=== PATIENT | male | born 1985 | race Caucasian/White ===

== ENCOUNTER 2019-06-02 16:18 | Emergency (ER) | payer OTHER, SELFPAY ==
[~2019-06-02] VITALS: Ht 180.3 cm; Wt 140.9 kg
[2019-06-02] MEDS ORDERED: FLUO40CA PO (16:24)
[2019-06-02] MEDS ORDERED: MONT10TA2 PO (16:24)
[2019-06-02] MEDS ORDERED: OMEP40CA2 PO (16:24)
[2019-06-02] MEDS ORDERED: BUSP30TA PO (16:24)
[2019-06-02] MEDS ORDERED: ADV250INH INH (16:24)
[2019-06-02] MEDS ORDERED: PROAAER10 INH (16:24)
[2019-06-02 17:10] LABS: HEMATOCRIT 43.1 % (42.0-52.0); HEMOGLOBIN 14.8 g/dl (13.5-17.5); MEAN CORPUSCULAR HEMOGLOBIN 28.9 pg (27.0-33.0); MEAN CORPUSCULAR HGB CONC 34.3 g/dl (32.0-36.5); MEAN CORPUSCULAR VOLUME 84.2 fl (80.0-96.0); PLATELET COUNT, AUTOMATED 354 10^3/uL (150-450); RED BLOOD COUNT 5.12 10^6/uL (4.30-6.10); WHITE BLOOD COUNT 9.7 10^3/uL (4.0-10.0)
[2019-06-02 17:50] LABS: ALBUMIN 3.6 GM/DL (3.2-5.2); ALT/SGPT 23 U/L (12-78); BILIRUBIN,DIRECT 0.1 MG/DL (0.0-0.2); BILIRUBIN,TOTAL 0.4 MG/DL (0.2-1.0); BLOOD UREA NITROGEN 7 MG/DL (7-18); CALCIUM LEVEL 8.7 MG/DL (8.5-10.1); CARBON DIOXIDE LEVEL 25 MEQ/L (21-32); CHLORIDE LEVEL 109 MEQ/L (98-107); CREATININE FOR GFR 0.97 MG/DL (0.70-1.30); GLOMERULAR FILTRATION RATE > 60.0 (>60); GLUCOSE, FASTING 107 MG/DL (70-100); POTASSIUM SERUM 3.8 MEQ/L (3.5-5.1); SALICYLATE LEVEL < 1.7 MG/DL (5.0-30.0); SODIUM LEVEL 141 MEQ/L (136-145); THYROID STIMULATING HORMONE 0.708 uIU/ML (0.358-3.740); TOTAL PROTEIN 6.9 GM/DL (6.4-8.2)
[2019-06-02 17:51] LABS: ACETAMINOPHEN LEVEL < 2.0 UG/ML (10.0-30.0); ETHYL ALCOHOL (ETHANOL) < 0.003 % (0.000-0.010)
[2019-06-02 18:56] LABS: AMPHETAMINES LEVEL URINE NEGATIVE (NEGATIVE); BARBITURATES URINE NEGATIVE (NEGATIVE); BENZODIAZEPINES URINE NEGATIVE (NEGATIVE); CANNABINOIDS URINE NEGATIVE (NEGATIVE); COCAINE METABOLITE URINE NEGATIVE (NEGATIVE); METHADONE URINE NEGATIVE (NEGATIVE); OPIATES URINE NEGATIVE (NEGATIVE); PHENCYCLIDINE URINE NEGATIVE (NEGATIVE)
[2019-06-02] MEDS ORDERED: FLUoxetine 20 MG CAP PO ONE (22:15)
[2019-06-02] MEDS ORDERED: busPIRone 10 MG TAB PO ONE (22:15)
[2019-06-03] MEDS ORDERED: MONTELUKAST 10 MG TAB PO ONE (07:30)
[2019-06-03] MEDS ORDERED: OMEPRAZOLE 20 MG CAP PO ONE (07:30)
[2019-06-03] MEDS ORDERED: busPIRone 10 MG TAB PO ONE (07:30)
[2019-06-03] MEDS ORDERED: ADVAIR HFA 230/21MCG INHALER INH SCH (08:00)
[2019-06-03] MEDS: ADVAIR HFA 115/21MCG INHALER INH SCH ×2 (08:00→21:30)
[2019-06-03] MEDS ORDERED: FLUO20CA19 PO (11:47)
--- NOTE | 2019-06-03 17:00 | ECGEPIP ---
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
[2019-06-03 23:51] VITALS: BP 138/74
== END 2019-06-03 23:52 ==
LOC: M ED 16:18
DX: F32.9 Major depressive disorder, single episode, unspecified (principal); R45.851 Suicidal ideations; Z79.899 Other long term (current) drug therapy
CPT/HCPCS: 36415; 80048; 80076; 80307; 84443; 85027; 93005; 94640; 99284; G0480

== ENCOUNTER 2019-08-21 23:49 | Emergency (ER) | payer OTHER, SELFPAY ==
[~2019-08-21] VITALS: Ht 180.3 cm; Wt 145.4 kg
[~2019-08-21 23:49] MED LIST: ADV250INH INH; BUSP30TA PO; FLUO20CA19 PO; FLUO40CA PO; MONT10TA2 PO; OMEP40CA97 PO; PROAAER10 INH
[2019-08-22 00:36] LABS: HEMATOCRIT 47.4 % (42.0-52.0); HEMOGLOBIN 15.8 g/dl (13.5-17.5); MEAN CORPUSCULAR HEMOGLOBIN 29.1 pg (27.0-33.0); MEAN CORPUSCULAR HGB CONC 33.3 g/dl (32.0-36.5); MEAN CORPUSCULAR VOLUME 87.3 fl (80.0-96.0); PLATELET COUNT, AUTOMATED 329 10^3/uL (150-450); RED BLOOD COUNT 5.43 10^6/uL (4.30-6.10); WHITE BLOOD COUNT 9.9 10^3/uL (4.0-10.0)
[2019-08-22 01:03] LABS: AMPHETAMINES LEVEL URINE NEGATIVE (NEGATIVE); BARBITURATES URINE NEGATIVE (NEGATIVE); BENZODIAZEPINES URINE NEGATIVE (NEGATIVE); CANNABINOIDS URINE NEGATIVE (NEGATIVE); COCAINE METABOLITE URINE NEGATIVE (NEGATIVE); METHADONE URINE NEGATIVE (NEGATIVE); OPIATES URINE NEGATIVE (NEGATIVE); PHENCYCLIDINE URINE NEGATIVE (NEGATIVE)
[2019-08-22 01:10] VITALS: BP 139/86
[2019-08-22 01:10] LABS: ACETAMINOPHEN LEVEL < 2.0 UG/ML (10.0-30.0); ALBUMIN 3.9 GM/DL (3.2-5.2); ALT/SGPT 26 U/L (12-78); BILIRUBIN,DIRECT < 0.1 MG/DL (0.0-0.2); BILIRUBIN,TOTAL 0.2 MG/DL (0.2-1.0); BLOOD UREA NITROGEN 7 MG/DL (7-18); CALCIUM LEVEL 8.7 MG/DL (8.5-10.1); CARBON DIOXIDE LEVEL 23 MEQ/L (21-32); CHLORIDE LEVEL 109 MEQ/L (98-107); CREATININE FOR GFR 1.06 MG/DL (0.70-1.30); ETHYL ALCOHOL (ETHANOL) 0.185 % (0.000-0.010); GLOMERULAR FILTRATION RATE > 60.0 (>60); GLUCOSE, FASTING 89 MG/DL (70-100); POTASSIUM SERUM 3.7 MEQ/L (3.5-5.1); SALICYLATE LEVEL < 1.7 MG/DL (5.0-30.0); SODIUM LEVEL 142 MEQ/L (136-145); TOTAL PROTEIN 7.9 GM/DL (6.4-8.2)
== END 2019-08-22 01:11 | disposition home or self-care (01) ==
LOC: M ED 23:49
DX: F10.920 Alcohol use, unspecified with intoxication, uncomplicated (principal); Z60.9 Problem related to social environment, unspecified; Z15.09 Genetic susceptibility to other malignant neoplasm; Z79.51 Long term (current) use of inhaled steroids; Z79.83 Long term (current) use of bisphosphonates; Z79.899 Other long term (current) drug therapy
CPT/HCPCS: 36415; 80048; 80076; 80307; 84443; 85027; 99284; G0480

== ENCOUNTER → 2020-08-22 | Outpatient (CLI) | payer OTHER ==
[~2020-08-22] MED LIST changes: +DULO1CAP6 PO; +E-Z-PAQUE 96% w/w SUSP 176GM BTL As Ordered ONE; -FLUO20CA19 PO; +FLUO20CA22 PO; +FLUT1BLS2 IH; -MONT10TA2 PO; +MONT10TA4 PO; +SYMB80INH INH
--- NOTE | 2020-08-22 15:49 | REP ---
INDICATION: GENETIC SUSCEPTIBILITY TO OTHER MALIGNANT NEOPLASM. COMPARISON: None TECHNIQUE: This procedure was performed by Blanche Franks [facility], under the direct supervision of Dr. Freire. Images were reviewed with Dr. Freire prior to dictation. Liquid barium was administered and the barium column was followed through the small bowel to the level of the terminal ileum. 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 The intestinal gas pattern is unremarkable. Small bowel transit time is approximately 115 minutes. During fluoroscopy gentle palpation shows all loops are freely movable and pliable. There is no fixed angulated loops. The small bowel mucosal pattern is normal in course and caliber. There is no transition to suggest a partial small bowel obstruction. Spot filming of the terminal ileum shows it to be unremarkable. IMPRESSION: Unremarkable small bowel follow-through. 0.7 minutes of fluoroscopy time was utilized for this procedure. Some fluoroscopic images are performed with last image hold technology. These images require no additional radiation. <Electronically signed by Blanche Franks > 08/22/20 [id number] <Electronically signed by Juan Freire > 08/22/20 2091
== END ==
LOC: M RAD 08:30
PROVIDERS: ATTEND Physician Assistant Medical
DX: Z15.09 Genetic susceptibility to other malignant neoplasm (principal)

== ENCOUNTER → 2020-08-24 | Outpatient (CLI) | payer OTHER ==
[~2020-08-24] MED LIST changes: -E-Z-PAQUE 96% w/w SUSP 176GM BTL As Ordered ONE
== END ==
LOC: M LABSMTC 12:56
PROVIDERS: ATTEND Anesthesiology
DX: Z01.812 Encounter for preprocedural laboratory examination (principal); Z20.828 Contact with and (suspected) exposure to other viral communicable diseases

== ENCOUNTER 2020-08-29 13:54 | Day surgery (SDC) | payer OTHER ==
[~2020-08-29] VITALS: Ht 180.3 cm; Wt 139.3 kg
[~2020-08-29 13:54] MED LIST changes: -MONT10TA4 PO; +MONT5TAB2 PO; +NS 1,000 ML IV ONE
[2020-08-29] MEDS ORDERED: propofoL 200 MG/20 ML VIAL As Ordered ONE ×2 (14:53→16:11)
[2020-08-29] MEDS ORDERED: fentaNYL 100 MCG/2 ML INJECTION (J3010) As Ordered ONE (14:54)
--- NOTE | 2020-08-29 16:05 | ROOR ---
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 Procedure: Pre-Anesthesia Assessment: - The heart rate, respiratory rate, oxygen saturations, blood pressure, adequacy of pulmonary ventilation, and response to care were monitored throughout the procedure. The Endoscope was introduced through the mouth, and advanced to the second part of duodenum. The upper GI endoscopy was accomplished without difficulty. The patient tolerated the procedure well. Findings: The Z-line was variable and was found 38 cm from the incisors. This was biopsied with a cold forceps for histology. Small Hiatal Hernia. Two diminutive sessile polyps were found on the greater curvature of the gastric body. The polyp was removed with a cold biopsy forceps. Resection and retrieval were complete. The exam was otherwise without abnormality. Impression: - Z-line variable, 38 cm from the incisors. Biopsied. - Small Hiatal Hernia. - Two gastric polyps. Resected and retrieved. - The examination was otherwise normal. Recommendation: - Telephone endoscopist for pathology results in 2 weeks. - Repeat upper endoscopy for surveillance based on pathology results. - (typically every 1-2 years---await pathology) Procedure Code(s): --- Professional --- 01636, Esophagogastroduodenoscopy, flexible, transoral; with biopsy, single or multiple Diagnosis Code(s): --- Professional --- Z15.09, Genetic susceptibility to other malignant neoplasm K31.7, Polyp of stomach and duodenum K22.8, Other specified diseases of esophagus CPT copyright 2019 [employer]. All rights reserved. The codes documented in this report are preliminary and upon song lyricist review may be revised to meet current compliance requirements. Sammy Ballard MD Sammy BALLARD MD 08/29/2020 4:05:37 PM Electronically signed by Sammy BALLARD MD Number of Addenda: 0 Note Initiated On: 08/29/2020 3:46 PM Estimated Blood Loss: Estimated blood loss: none.
[2020-08-29] MEDS ORDERED: LIDOCAINE 2% 100MG/5ML SDV (FOR ANES.) As Ordered ONE (16:14)
--- NOTE | 2020-08-29 16:21 | ROOR ---
Patient Name: Suman West Procedure Date: 08/29/2020 3:47 PM Date of : 1985 Age: 35 Room: [id number] Gender: Male Note Status: Finalized Procedure: Colonoscopy Indications: High risk colon cancer surveillance: Personal history of hereditary nonpolyposis colorectal cancer (Tolliver Syndrome), Tolliver Syndrome Providers: Sammy BALLARD MD Referring MD: Zhane Puente DO Requesting Provider: Medicines: Monitored Anesthesia Care Complications: No immediate complications. Procedure: Pre-Anesthesia Assessment: - The heart rate, respiratory rate, oxygen saturations, blood pressure, adequacy of pulmonary ventilation, and response to care were monitored throughout the procedure. The Colonoscope was introduced through the anus and advanced to 10 cm into the ileum. The colonoscopy was performed without difficulty. The patient tolerated the procedure well. The quality of the bowel preparation was good. Findings: The perianal and digital rectal examinations were normal. Two sessile polyps were found in the cecum. The polyps were 4 to 5 mm in size. These polyps were removed with a cold snare. Resection and retrieval were complete. Retroflexion in the right colon was performed. The exam was otherwise without abnormality on direct and retroflexion views. Impression: - Two 4 to 5 mm polyps in the cecum, removed with a cold snare. Resected and retrieved. - The examination was otherwise normal on direct and retroflexion views. Recommendation: - Repeat colonoscopy in 1 year for surveillance. - Telephone endoscopist for pathology results in 2 weeks. Procedure Code(s): --- Professional --- 57739, Colonoscopy, flexible; with removal of tumor(s), polyp(s), or other lesion(s) by snare technique Diagnosis Code(s): --- Professional --- Z85.038, Personal history of other malignant neoplasm of large intestine Z15.09, Genetic susceptibility to other malignant neoplasm K63.5, Polyp of colon CPT copyright 2019 [employer]. All rights reserved. The codes documented in this report are preliminary and upon mri technologist review may be revised to meet current compliance requirements. Sammy Ballard MD Sammy BALLARD MD 08/29/2020 4:20:35 PM Electronically signed by Sammy BALLARD MD Number of Addenda: 0 Note Initiated On: 08/29/2020 3:47 PM Estimated Blood Loss: Estimated blood loss: none.
[2020-08-29 16:40] VITALS: BP 111/70
== END 2020-08-29 16:45 | disposition home or self-care (01) ==
LOC: M OPP 13:54
PROVIDERS: ATTEND Internal Medicine Gastroenterology
DX: Z85.038 Personal history of other malignant neoplasm of large intestine (principal); Z80.0 Family history of malignant neoplasm of digestive organs; Z15.09 Genetic susceptibility to other malignant neoplasm; D12.0 Benign neoplasm of cecum; K22.8 Other specified diseases of esophagus; K31.7 Polyp of stomach and duodenum; K21.9 Gastro-esophageal reflux disease without esophagitis; K44.9 Diaphragmatic hernia without obstruction or gangrene; Z79.899 Other long term (current) drug therapy; Z08 Encounter for follow-up examination after completed treatment for malignant neoplasm
CPT/HCPCS: 43239; 45385; 88305; J3010

== ENCOUNTER → 2021-01-23 | Outpatient (REF) | payer OTHER ==
[~2021-01-23] MED LIST changes: +MONT10TA10 PO; -MONT5TAB2 PO; -NS 1,000 ML IV ONE
[2021-01-25 23:07] LABS: ANTINUCLEAR ANTIBODIES DIRECT Negative (Negative); CYCLIC CITRULLINATED PEPTIDE 3 units (0-19)
== END ==
LOC: M LAB REF 16:16
PROVIDERS: ATTEND Internal Medicine
DX: M25.50 Pain in unspecified joint (principal)

== ENCOUNTER → 2021-10-18 | Outpatient (CLI) | payer OTHER ==
[~2021-10-18] MED LIST changes: -MONT10TA10 PO; +MONT10TA97 PO; +OMEP40CA4 PO; -OMEP40CA97 PO
== END ==
LOC: M LABSMTC 12:14
PROVIDERS: ATTEND Anesthesiology
DX: Z01.818 Encounter for other preprocedural examination (principal); Z11.52 Encounter for screening for COVID-19

== ENCOUNTER 2021-10-23 12:01 | Day surgery (SDC) | payer OTHER ==
[~2021-10-23] VITALS: Ht 180.3 cm; Wt 146.1 kg
[~2021-10-23 12:01] MED LIST changes: +FLUT1BLS5 INH; +NS 1,000 ML IV ONE
[2021-10-23] MEDS ORDERED: propofoL 500 MG/50 ML VIAL As Ordered ONE (13:33)
[2021-10-23] MEDS ORDERED: LIDOCAINE 2% 100MG/5ML SDV (FOR ANES.) As Ordered ONE (13:33)
[2021-10-23] MEDS ORDERED: fentaNYL 100 MCG/2 ML INJECTION (J3010) As Ordered ONE (13:33)
[2021-10-23] MEDS ORDERED: MIDAZOLAM INJ 2MG/2ML VIAL (J2250 PER 1MG) As Ordered ONE (13:42)
[2021-10-23 14:53] VITALS: BP 137/103
== END 2021-10-23 15:07 | disposition home or self-care (01) ==
LOC: M OPP 12:01
PROVIDERS: ATTEND Internal Medicine Gastroenterology
DX: Z12.11 Encounter for screening for malignant neoplasm of colon (principal); Z85.038 Personal history of other malignant neoplasm of large intestine; Z15.09 Genetic susceptibility to other malignant neoplasm; Z80.0 Family history of malignant neoplasm of digestive organs; K63.5 Polyp of colon; K31.7 Polyp of stomach and duodenum; R12 Heartburn; Z79.899 Other long term (current) drug therapy; Z80.3 Family history of malignant neoplasm of breast; Z80.41 Family history of malignant neoplasm of ovary; F17.210 Nicotine dependence, cigarettes, uncomplicated
CPT/HCPCS: 43251; 45385; 88305; J2250; J3010

== ENCOUNTER 2021-10-24 18:58 | Emergency (ER) | payer OTHER ==
[~2021-10-24] VITALS: Ht 180.3 cm; Wt 149.2 kg
[~2021-10-24 18:58] MED LIST changes: -NS 1,000 ML IV ONE
[2021-10-24] MEDS ORDERED: MORPHINE 4 MG/ML 1ML VIAL/SYRINGE (J2270) IV PRN (20:30)
[2021-10-24] MEDS ORDERED: ONDANSETRON 4MG/2ML VIAL IV ONE (20:30)
[2021-10-24 21:29] LABS: BASO # 0.1 10^3/uL (0.0-0.2); BASO % 0.5 % (0.0-1.0); EOS # 0.1 10^3/uL (0.0-0.5); EOS % 0.6 % (0.0-3.0); HEMATOCRIT 41.8 % (42.0-52.0); HEMOGLOBIN 14.1 g/dl (13.5-17.5); LYMPH # 3.5 10^3/uL (1.5-5.0); LYMPH % 27.3 % (24.0-44.0); MEAN CORPUSCULAR HEMOGLOBIN 28.8 pg (27.0-33.0); MEAN CORPUSCULAR HGB CONC 33.7 g/dl (32.0-36.5); MEAN CORPUSCULAR VOLUME 85.3 fl (80.0-96.0); MONO % 7.9 % (2.0-8.0); NEUTROPHILS # 8.1 10^3/uL (1.5-8.5); NEUTROPHILS % 63.5 % (36.0-66.0); PLATELET COUNT, AUTOMATED 346 10^3/uL (150-450); WHITE BLOOD COUNT 12.7 10^3/uL (4.0-10.0)
[2021-10-24] MEDS ORDERED: ISOVUE-370 76% 100ML VIAL As Ordered ONE (21:40)
[2021-10-24 21:52] LABS: ALBUMIN 3.5 GM/DL (3.2-5.2); BILIRUBIN,DIRECT 0.1 MG/DL (0.0-0.2); BILIRUBIN,TOTAL 0.3 MG/DL (0.2-1.0); TOTAL PROTEIN 7.1 GM/DL (6.4-8.2)
[2021-10-24] MEDS ORDERED: OXYCODONE/APAP 5MG/325MG(BULK FOR ED) 1 TABLET PO ONE (23:35)
[2021-10-25 00:07] VITALS: BP 130/79
== END 2021-10-25 00:54 | disposition home or self-care (01) ==
LOC: M ED 18:58
DX: R10.9 Unspecified abdominal pain (principal); Z98.890 Other specified postprocedural states; J45.909 Unspecified asthma, uncomplicated; F17.200 Nicotine dependence, unspecified, uncomplicated; F10.10 Alcohol abuse, uncomplicated; Z79.51 Long term (current) use of inhaled steroids; Z79.899 Other long term (current) drug therapy
CPT/HCPCS: 74177; 80047; 80076; 83605; 83690; 85025; 93041; 96374; 99284; J2270; J2405; Q9967

== ENCOUNTER 2021-12-18 05:27 | Emergency (ER) | payer OTHER ==
[~2021-12-18] VITALS: Ht 180.3 cm; Wt 145.9 kg
[2021-12-18 06:09] LABS: BASO # 0.1 10^3/uL (0.0-0.2); BASO % 0.6 % (0.0-1.0); EOS # 0.1 10^3/uL (0.0-0.5); EOS % 0.7 % (0.0-3.0); HEMATOCRIT 44.7 % (42.0-52.0); LYMPH # 3.2 10^3/uL (1.5-5.0); LYMPH % 24.9 % (24.0-44.0); MEAN CORPUSCULAR HEMOGLOBIN 29.1 pg (27.0-33.0); MEAN CORPUSCULAR HGB CONC 33.6 g/dl (32.0-36.5); MEAN CORPUSCULAR VOLUME 86.6 fl (80.0-96.0); MONO # 0.9 10^3/uL (0.0-0.8); MONO % 7.3 % (2.0-8.0); NEUTROPHILS # 8.5 10^3/uL (1.5-8.5); NEUTROPHILS % 66.3 % (36.0-66.0); PLATELET COUNT, AUTOMATED 352 10^3/uL (150-450); RED BLOOD COUNT 5.16 10^6/uL (4.30-6.10); WHITE BLOOD COUNT 12.9 10^3/uL (4.0-10.0)
[2021-12-18] MEDS ORDERED: ONDANSETRON 4MG/2ML VIAL IV ONE (06:20)
[2021-12-18] MEDS ORDERED: GI COCKTAIL 50ML BTL(HYOSCYAMINE/MAALOX/LIDOCAINE VISCOUS)(1:3:1) PO ONE (06:20)
[2021-12-18 06:34] LABS: CK-MB VALUE MASS < 1.0 NG/ML (<3.6); CPK CREATINE PHOSPHOKINASE 65 U/L (39-308); MB/CK RELATIVE INDEX 1.54 (< OR =4)
[2021-12-18 06:43] LABS: ALBUMIN 3.4 GM/DL (3.2-5.2); ALT/SGPT 26 U/L (12-78); AMYLASE 24 U/L (25-115); BILIRUBIN,DIRECT < 0.1 MG/DL (0.0-0.2); BILIRUBIN,TOTAL 0.3 MG/DL (0.2-1.0); BLOOD UREA NITROGEN 10 MG/DL (7-18); CALCIUM LEVEL 8.7 MG/DL (8.5-10.1); CARBON DIOXIDE LEVEL 28 MEQ/L (21-32); CHLORIDE LEVEL 106 MEQ/L (98-107); CREATININE FOR GFR 0.99 MG/DL (0.70-1.30); GLOMERULAR FILTRATION RATE > 60.0 (>60); GLUCOSE, FASTING 103 MG/DL (70-100); LIPASE 92 U/L (73-393); POTASSIUM SERUM 4.7 MEQ/L (3.5-5.1); SODIUM LEVEL 138 MEQ/L (136-145); TOTAL PROTEIN 7.1 GM/DL (6.4-8.2)
[2021-12-18] MEDS ORDERED: ISOVUE-370 76% 100ML VIAL As Ordered ONE (06:57)
[2021-12-18 08:32] VITALS: BP 135/80
[2021-12-18] MEDS ORDERED: CARA1TAB6 PO (08:33)
[2021-12-18] MEDS ORDERED: SUCRALFATE 1 GM TAB PO ONE (08:35)
== END 2021-12-18 08:49 | disposition home or self-care (01) ==
LOC: M ED 05:27
DX: K29.70 Gastritis, unspecified, without bleeding (principal); K21.9 Gastro-esophageal reflux disease without esophagitis; Z79.899 Other long term (current) drug therapy
CPT/HCPCS: 74177; 80048; 80076; 82150; 82550; 82553; 83690; 85025; 93005; 96374; 99285; J2405; Q9967

== ENCOUNTER 2022-02-01 13:38 | Emergency (ER) | payer OTHER ==
[~2022-02-01] VITALS: Ht 180.3 cm; Wt 140.1 kg
[~2022-02-01 13:38] MED LIST changes: +CARA1TAB6 PO
[2022-02-01 13:45] VITALS: BP 134/95
[2022-02-01] MEDS ORDERED: ZOLO100T (14:01)
[2022-02-01] MEDS ORDERED: SERT50TA29 (14:01)
[2022-02-01] MEDS ORDERED: XANA1TAB2 (14:01)
[2022-02-01] MEDS ORDERED: MINI1CAP (14:03)
[2022-02-01 14:46] LABS: BASO # 0.1 10^3/uL (0.0-0.2); BASO % 0.4 % (0.0-1.0); EOS # 0.1 10^3/uL (0.0-0.5); EOS % 0.4 % (0.0-3.0); HEMATOCRIT 44.9 % (42.0-52.0); HEMOGLOBIN 14.9 g/dl (13.5-17.5); LYMPH # 2.2 10^3/uL (1.5-5.0); LYMPH % 16.3 % (24.0-44.0); MEAN CORPUSCULAR HEMOGLOBIN 28.8 pg (27.0-33.0); MEAN CORPUSCULAR HGB CONC 33.2 g/dl (32.0-36.5); MEAN CORPUSCULAR VOLUME 86.8 fl (80.0-96.0); MONO # 0.8 10^3/uL (0.0-0.8); MONO % 6.1 % (2.0-8.0); NEUTROPHILS # 10.3 10^3/uL (1.5-8.5); NEUTROPHILS % 76.5 % (36.0-66.0); PLATELET COUNT, AUTOMATED 390 10^3/uL (150-450); RED BLOOD COUNT 5.17 10^6/uL (4.30-6.10); WHITE BLOOD COUNT 13.4 10^3/uL (4.0-10.0)
[2022-02-01 15:16] LABS: ALBUMIN 3.7 GM/DL (3.2-5.2); ALT/SGPT 29 U/L (12-78); BILIRUBIN,DIRECT < 0.1 MG/DL (0.0-0.2); BILIRUBIN,TOTAL 0.3 MG/DL (0.2-1.0); BLOOD UREA NITROGEN 7 MG/DL (7-18); CALCIUM LEVEL 9.6 MG/DL (8.5-10.1); CARBON DIOXIDE LEVEL 26 MEQ/L (21-32); CHLORIDE LEVEL 110 MEQ/L (98-107); CREATININE FOR GFR 0.79 MG/DL (0.70-1.30); GLOMERULAR FILTRATION RATE > 60.0 (>60); GLUCOSE, FASTING 112 MG/DL (70-100); LIPASE 72 U/L (73-393); POTASSIUM SERUM 4.1 MEQ/L (3.5-5.1); SODIUM LEVEL 142 MEQ/L (136-145); TOTAL PROTEIN 7.3 GM/DL (6.4-8.2)
[2022-02-01] MEDS ORDERED: PANTOPRAZOLE 20 MG TAB PO ONE (15:20)
[2022-02-01] MEDS ORDERED: GI COCKTAIL 50ML BTL(HYOSCYAMINE/MAALOX/LIDOCAINE VISCOUS)(1:3:1) PO ONE (15:20)
[2022-02-01] MEDS ORDERED: SUCRALFATE SUSP 1GM/10ML UD PO ONE (16:50)
== END 2022-02-01 17:42 | disposition home or self-care (01) ==
LOC: M ED 13:38 → EDBD 13:38 → M ED 17:42
DX: K29.70 Gastritis, unspecified, without bleeding (principal); K21.9 Gastro-esophageal reflux disease without esophagitis; F17.200 Nicotine dependence, unspecified, uncomplicated; K22.719 Barrett's esophagus with dysplasia, unspecified; Z79.51 Long term (current) use of inhaled steroids; Z79.899 Other long term (current) drug therapy

== ENCOUNTER 2022-02-12 12:58 | Day surgery (SDC) | payer OTHER ==
[~2022-02-12] VITALS: Ht 180.3 cm; Wt 137.0 kg
[~2022-02-12 12:58] MED LIST changes: +MINI1CAP; +NS 1,000 ML IV ONE; +SERT50TA29; +XANA1TAB2; +ZOLO100T PO
[2022-02-12] MEDS ORDERED: fentaNYL 100 MCG/2 ML INJECTION As Ordered ONE (15:37)
[2022-02-12] MEDS ORDERED: propofoL 200 MG/20 ML VIAL As Ordered ONE (15:37)
[2022-02-12 16:10] VITALS: BP 132/82
== END 2022-02-12 16:21 | disposition home or self-care (01) ==
LOC: M OPP 12:58
PROVIDERS: ATTEND Internal Medicine Gastroenterology
DX: K22.89 Other specified disease of esophagus (principal); Q39.1 Atresia of esophagus with tracheo-esophageal fistula; R10.11 Right upper quadrant pain; R11.2 Nausea with vomiting, unspecified; Z15.09 Genetic susceptibility to other malignant neoplasm; Z80.0 Family history of malignant neoplasm of digestive organs; Z79.899 Other long term (current) drug therapy; F17.290 Nicotine dependence, other tobacco product, uncomplicated; Z80.3 Family history of malignant neoplasm of breast; Z80.42 Family history of malignant neoplasm of prostate
CPT/HCPCS: 43239; 88305; J3010

== ENCOUNTER → 2022-02-16 | Outpatient (CLI) | payer OTHER ==
[~2022-02-16] MED LIST changes: -NS 1,000 ML IV ONE
== END ==
LOC: M WHC 08:34
PROVIDERS: ATTEND Physician Assistant Medical
DX: R10.10 Upper abdominal pain, unspecified (principal)

== ENCOUNTER → 2022-03-28 | Outpatient (REF) | LOC: M PLAIMG 14:00 | PROVIDERS: ATTEND Internal Medicine | DX: M51.37 Other intervertebral disc degeneration, lumbosacral region (principal) ==

== ENCOUNTER 2022-04-28 23:22 | Emergency (ER) | payer OTHER ==
[~2022-04-28] VITALS: Ht 180.3 cm; Wt 140.9 kg
[2022-04-28 23:22] VITALS: BP 110/69
== END 2022-04-29 00:58 | disposition left against medical advice (07) ==
LOC: M ED 23:22
DX: Z53.21 Procedure and treatment not carried out due to patient leaving prior to being seen by health care provider (principal)

== ENCOUNTER → 2022-05-21 | Outpatient (CLI) | payer OTHER ==
[~2022-05-21] MED LIST changes: +ALBU8.5H INH; +ARIP1TAB6 PO; +ATIV1TAB7 PO; +DICY10CA13 PO; +DIVA250T67 PO; +DIVA500T94 PO; -MINI1CAP; +MINI1CAP PO; +OMEP1CAP73 PO; +OMEP40CA5 PO; +PARO20TA3 PO; +PAXI20TA29 PO; +PAXI40TA10 PO
== END ==
LOC: M LABSMTC 10:12
PROVIDERS: ATTEND Anesthesiology
DX: Z01.812 Encounter for preprocedural laboratory examination (principal); Z20.822 Contact with and (suspected) exposure to COVID-19

== ENCOUNTER 2022-05-24 07:04 | Day surgery (SDC) | payer OTHER ==
[~2022-05-24] VITALS: Ht 180.3 cm; Wt 140.2 kg
[2022-05-24] MEDS ORDERED: LR 1,000 ML IV SCH ×2 (07:45→11:50)
[2022-05-24] MEDS ORDERED: propofoL 200 MG/20 ML VIAL As Ordered ONE ×3 (08:15→11:33)
[2022-05-24] MEDS ORDERED: ONDANSETRON 4MG 2ML VIAL As Ordered ONE (08:15)
[2022-05-24] MEDS ORDERED: MIDAZOLAM INJ 2MG/2ML VIAL (J2250 PER 1MG) As Ordered ONE (08:15)
[2022-05-24] MEDS ORDERED: LIDOCAINE 2% 100MG/5ML SDV (FOR ANES.) As Ordered ONE (08:15)
[2022-05-24] MEDS ORDERED: KETOROLAC 60MG 2ML VIAL As Ordered ONE (08:15)
[2022-05-24] MEDS ORDERED: ROCURONIUM BROMIDE 50 MG/5 ML VIAL As Ordered ONE ×3 (08:15→10:43)
[2022-05-24] MEDS ORDERED: fentaNYL 250 MCG/5 ML INJECTION As Ordered ONE (08:15)
[2022-05-24] MEDS ORDERED: dexameTHASONE 4 MG/ML 1ML VIAL (J1100 PER 1MG) As Ordered ONE (08:15)
[2022-05-24] MEDS ORDERED: BUPIVACAINE/EPIN 0.25% 30 ML VIAL As Ordered ONE (09:34)
[2022-05-24] MEDS ORDERED: ACETAMINOPHEN 1000MG 100ML IV BTL (OFIRMEV) (J0131 PER 10MG) As Ordered ONE (09:57)
[2022-05-24] MEDS ORDERED: ePHEDrine SULFATE 25 MG/5 ML(5MG/ML) SYRINGE As Ordered ONE (09:58)
[2022-05-24] MEDS ORDERED: GLYCOPYRROLATE INJ 0.2 MG/ML 2 ML VIAL As Ordered ONE (09:59)
[2022-05-24] MEDS ORDERED: SUGAMMADEX SODIUM 500 MG/5 ML VIAL (BRIDION) As Ordered ONE (10:22)
[2022-05-24] MEDS ORDERED: METOCLOPRAMIDE INJ 10MG/2ML VIAL (J2765 PER 1) As Ordered ONE (10:30)
[2022-05-24] MEDS ORDERED: fentaNYL 100 MCG/2 ML INJECTION As Ordered ONE ×2 (10:50→11:57)
[2022-05-24] MEDS ORDERED: MORPHINE 2 MG/ML 1ML VIAL IV PRN (11:50)
[2022-05-24] MEDS ORDERED: ONDANSETRON 4MG 2ML VIAL IV PRN (11:50)
[2022-05-24] MEDS: fentaNYL 100 MCG/2 ML INJECTION IV PRN ×3 (11:59→12:20)
[2022-05-24] MEDS: oxyCODONE 5MG TAB PO PRN ×2 (12:11→13:05)
[2022-05-24 12:45] VITALS: BP 123/79
== END 2022-05-24 13:50 | disposition home or self-care (01) ==
LOC: M OPP 07:04
PROVIDERS: ATTEND Surgery
DX: K80.10 Calculus of gallbladder with chronic cholecystitis without obstruction (principal); K58.8 Other irritable bowel syndrome; K21.9 Gastro-esophageal reflux disease without esophagitis; F41.9 Anxiety disorder, unspecified; F32.A Depression, unspecified; J45.909 Unspecified asthma, uncomplicated; F17.290 Nicotine dependence, other tobacco product, uncomplicated; Z79.51 Long term (current) use of inhaled steroids; Z79.899 Other long term (current) drug therapy; Z15.09 Genetic susceptibility to other malignant neoplasm
CPT/HCPCS: 47562; 88304; J0131; J1100; J1885; J2250; J2405; J2765; J3010; S2900

== ENCOUNTER 2022-10-16 16:06 | Emergency (ER) | payer OTHER ==
[~2022-10-16] VITALS: Ht 180.3 cm; Wt 135.2 kg
[~2022-10-16 16:06] MED LIST changes: -PAXI20TA29 PO; +PAXI20TA30 PO; -PAXI40TA10 PO; +PAXI40TA12 PO
[2022-10-16 16:07] VITALS: BP 139/87
== END 2022-10-16 19:48 | disposition left against medical advice (07) ==
LOC: M ED 17:39
DX: Z53.21 Procedure and treatment not carried out due to patient leaving prior to being seen by health care provider (principal)

== ENCOUNTER 2022-10-17 21:19 | Emergency (ER) | payer OTHER ==
[~2022-10-17] VITALS: Ht 180.3 cm; Wt 135.4 kg
[2022-10-17 22:07] LABS: BASO # 0.1 10^3/uL (0.0-0.2); BASO % 0.5 % (0.0-1.0); EOS # 0.1 10^3/uL (0.0-0.5); EOS % 0.7 % (0.0-3.0); HEMATOCRIT 47.3 % (42.0-52.0); HEMOGLOBIN 15.5 g/dl (13.5-17.5); LYMPH # 3.6 10^3/uL (1.5-5.0); LYMPH % 34.1 % (24.0-44.0); MEAN CORPUSCULAR HEMOGLOBIN 28.4 pg (27.0-33.0); MEAN CORPUSCULAR HGB CONC 32.8 g/dl (32.0-36.5); MEAN CORPUSCULAR VOLUME 86.8 fl (80.0-96.0); MONO # 0.9 10^3/uL (0.0-0.8); MONO % 8.2 % (2.0-8.0); NEUTROPHILS % 56.2 % (36.0-66.0); PLATELET COUNT, AUTOMATED 375 10^3/uL (150-450); RED BLOOD COUNT 5.45 10^6/uL (4.30-6.10); WHITE BLOOD COUNT 10.7 10^3/uL (4.0-10.0)
[2022-10-17 22:30] LABS: CK-MB VALUE MASS < 1.0 NG/ML (<3.6)
[2022-10-17 22:32] LABS: BLOOD UREA NITROGEN 9 MG/DL (9-23); CALCIUM LEVEL 9.2 MG/DL (8.5-10.1); CARBON DIOXIDE LEVEL 26 MMOL/L (20-31); CHLORIDE LEVEL 107 MMOL/L (98-107); CPK CREATINE PHOSPHOKINASE 45 U/L (46-171); CREATININE FOR GFR 0.94 MG/DL (0.70-1.30); GLOMERULAR FILTRATION RATE > 60.0 (>60); GLUCOSE, FASTING 97 MG/DL (60-100); MB/CK RELATIVE INDEX 2.22 (< OR =4); POTASSIUM SERUM 3.9 MMOL/L (3.5-5.1); SODIUM LEVEL 141 MMOL/L (136-145)
[2022-10-18 03:54] LABS: CK-MB VALUE MASS < 1.0 NG/ML (<3.6)
[2022-10-18 03:56] LABS: CPK CREATINE PHOSPHOKINASE 45 U/L (46-171); MB/CK RELATIVE INDEX 2.22 (< OR =4)
[2022-10-18] MEDS ORDERED: DICYCLOMINE 10 MG CAP PO ONE (07:15)
[2022-10-18] MEDS ORDERED: NS 1,000 ML IV ONE (07:15)
[2022-10-18] MEDS ORDERED: ISOVUE-370 76% 100ML VIAL As Ordered ONE (07:47)
[2022-10-18] MEDS ORDERED: CARA1TAB6 PO (09:26)
[2022-10-18] MEDS ORDERED: DICY10CA13 PO (09:26)
[2022-10-18] MEDS ORDERED: FAMO10TA52 PO (09:26)
[2022-10-18 09:30] VITALS: BP 117/72
[2022-10-18] MEDS ORDERED: SUCRALFATE 1 GM TAB PO ONE (09:30)
[2022-10-18] MEDS ORDERED: FAMOTIDINE 20 MG TAB PO ONE (09:30)
[2022-10-18] MEDS ORDERED: GI COCKTAIL 50ML BTL(HYOSCYAMINE/MAALOX/LIDOCAINE VISCOUS)(1:3:1) PO ONE (09:30)
== END 2022-10-18 10:08 | disposition home or self-care (01) ==
LOC: M ED 21:19
DX: K29.70 Gastritis, unspecified, without bleeding (principal); K62.5 Hemorrhage of anus and rectum; R93.89 Abnormal findings on diagnostic imaging of other specified body structures; J45.909 Unspecified asthma, uncomplicated; K21.9 Gastro-esophageal reflux disease without esophagitis; F41.9 Anxiety disorder, unspecified; Z79.51 Long term (current) use of inhaled steroids; Z79.899 Other long term (current) drug therapy; Z79.52 Long term (current) use of systemic steroids; Z79.84 Long term (current) use of oral hypoglycemic drugs

== ENCOUNTER → 2022-11-26 | Outpatient (CLI) | payer OTHER ==
[~2022-11-26] MED LIST changes: +ALBU90AE IH; +ARNU1INH INH; +CLON-412 PO; +FAMO10TA52 PO; +VANC125C3 PO
== END ==
LOC: M LABSMTC 11:34
PROVIDERS: ATTEND Anesthesiology
DX: Z01.812 Encounter for preprocedural laboratory examination (principal)

== ENCOUNTER 2022-11-29 12:22 | Day surgery (SDC) | payer OTHER ==
[~2022-11-29] VITALS: Ht 180.3 cm; Wt 131.5 kg
[~2022-11-29 12:22] MED LIST changes: +NS 1,000 ML IV ONE
[2022-11-29] MEDS ORDERED: fentaNYL 100 MCG/2 ML INJECTION As Ordered ONE (13:41)
[2022-11-29] MEDS ORDERED: propofoL 200 MG/20 ML VIAL As Ordered ONE (14:29)
[2022-11-29] MEDS ORDERED: LIDOCAINE 2% 100MG/5ML SDV (FOR ANES.) As Ordered ONE (14:29)
[2022-11-29 14:38] VITALS: BP 143/94
== END 2022-11-29 14:46 | disposition home or self-care (01) ==
LOC: M OPP 12:22
PROVIDERS: ATTEND Internal Medicine Gastroenterology
DX: Z15.09 Genetic susceptibility to other malignant neoplasm (principal); K63.5 Polyp of colon; K57.30 Diverticulosis of large intestine without perforation or abscess without bleeding; K64.8 Other hemorrhoids; R12 Heartburn; K21.9 Gastro-esophageal reflux disease without esophagitis; F41.0 Panic disorder [episodic paroxysmal anxiety]; F32.A Depression, unspecified; F43.10 Post-traumatic stress disorder, unspecified; J45.909 Unspecified asthma, uncomplicated; F17.290 Nicotine dependence, other tobacco product, uncomplicated; Z86.19 Personal history of other infectious and parasitic diseases; Z79.51 Long term (current) use of inhaled steroids; Z79.899 Other long term (current) drug therapy; Z80.0 Family history of malignant neoplasm of digestive organs; Z80.8 Family history of malignant neoplasm of other organs or systems; Z80.41 Family history of malignant neoplasm of ovary; Z80.3 Family history of malignant neoplasm of breast; Z80.42 Family history of malignant neoplasm of prostate
CPT/HCPCS: 43239; 45385; 88305; J3010

== ENCOUNTER 2023-01-11 13:01 | Day surgery (SDC) | payer OTHER ==
[~2023-01-11] VITALS: Ht 180.3 cm; Wt 126.1 kg
[~2023-01-11 13:01] MED LIST changes: +ALPR1TAB3; +VILA20TA
[2023-01-11] MEDS ORDERED: propofoL 200 MG/20 ML VIAL As Ordered ONE (13:53)
[2023-01-11] MEDS ORDERED: LIDOCAINE 2% 100MG/5ML SDV (FOR ANES.) As Ordered ONE (13:54)
[2023-01-11] MEDS ORDERED: fentaNYL 100 MCG/2 ML INJECTION As Ordered ONE (13:54)
[2023-01-11] MEDS ORDERED: FECAL MICROBIOTA TRANSPLANT PREPARATION 35ML BAG XX ONE (15:00)
[2023-01-11 16:29] VITALS: BP 107/72
== END 2023-01-11 16:31 | disposition home or self-care (01) ==
LOC: M OPP 13:01
PROVIDERS: ATTEND Internal Medicine Gastroenterology
DX: A04.71 Enterocolitis due to Clostridium difficile, recurrent (principal); K63.89 Other specified diseases of intestine; F17.290 Nicotine dependence, other tobacco product, uncomplicated; Z15.09 Genetic susceptibility to other malignant neoplasm; J45.909 Unspecified asthma, uncomplicated; Z79.51 Long term (current) use of inhaled steroids; Z79.899 Other long term (current) drug therapy; Z80.3 Family history of malignant neoplasm of breast; Z80.41 Family history of malignant neoplasm of ovary; Z80.42 Family history of malignant neoplasm of prostate
CPT/HCPCS: 44705; 45380; 88305; J3010

== ENCOUNTER → 2023-01-21 | Outpatient (CLI) | payer OTHER ==
[~2023-01-21] MED LIST changes: -NS 1,000 ML IV ONE
[2023-01-21 11:11] LABS: BASO # 0.1 10^3/uL (0.0-0.2); BASO % 0.9 % (0.0-1.0); EOS # 0.1 10^3/uL (0.0-0.5); EOS % 1.5 % (0.0-3.0); HEMATOCRIT 48.1 % (42.0-52.0); LYMPH # 3.4 10^3/uL (1.5-5.0); LYMPH % 44.9 % (24.0-44.0); MEAN CORPUSCULAR HEMOGLOBIN 29.1 pg (27.0-33.0); MEAN CORPUSCULAR HGB CONC 33.3 g/dl (32.0-36.5); MEAN CORPUSCULAR VOLUME 87.5 fl (80.0-96.0); MONO # 0.6 10^3/uL (0.0-0.8); NEUTROPHILS # 3.3 10^3/uL (1.5-8.5); NEUTROPHILS % 44.4 % (36.0-66.0); PLATELET COUNT, AUTOMATED 367 10^3/uL (150-450); WHITE BLOOD COUNT 7.5 10^3/uL (4.0-10.0)
[2023-01-21 11:30] LABS: LIPASE 28 U/L (12-53)
[2023-01-21 11:32] LABS: AMYLASE 34 U/L (30-118)
[2023-01-21 11:33] LABS: ALBUMIN 3.5 G/DL (3.2-5.2); ALKALINE PHOSPHATASE 73 U/L (46-116); ALT/SGPT 14 U/L (7.0-40); AST/SGOT 12 U/L (<34); BILIRUBIN,TOTAL 0.3 MG/DL (0.3-1.2); BLOOD UREA NITROGEN 6 MG/DL (9-23); CALCIUM LEVEL 9.3 MG/DL (8.5-10.1); CARBON DIOXIDE LEVEL 28 MMOL/L (20-31); CHLORIDE LEVEL 106 MMOL/L (98-107); CREATININE FOR GFR 1.23 MG/DL (0.70-1.30); GLOMERULAR FILTRATION RATE > 60.0 (>60); GLUCOSE, FASTING 105 MG/DL (60-100); POTASSIUM SERUM 4.6 MMOL/L (3.5-5.1); SODIUM LEVEL 138 MMOL/L (136-145); TOTAL PROTEIN 7.1 G/DL (5.7-8.2)
== END ==
LOC: M LAB 10:25
PROVIDERS: ATTEND Physician Assistant Medical
DX: R19.7 Diarrhea, unspecified (principal); R10.84 Generalized abdominal pain

== ENCOUNTER 2023-05-16 15:23 | Emergency (ER) | payer OTHER ==
[~2023-05-16] VITALS: Ht 180.3 cm; Wt 116.0 kg
[~2023-05-16 15:23] MED LIST changes: -PEPC1TAB5 PO
[2023-05-16 15:25] VITALS: TEMP 98.2; O2SAT 99
[2023-05-16 18:20] LABS: BASO # 0.1 10^3/uL (0.0-0.2); BASO % 0.8 % (0.0-1.0); EOS # 0.2 10^3/uL (0.0-0.5); EOS % 1.9 % (0.0-3.0); HEMATOCRIT 43.2 % (42.0-52.0); HEMOGLOBIN 14.5 g/dl (13.5-17.5); LYMPH % 32.8 % (24.0-44.0); MEAN CORPUSCULAR HEMOGLOBIN 29.3 pg (27.0-33.0); MEAN CORPUSCULAR HGB CONC 33.6 g/dl (32.0-36.5); MEAN CORPUSCULAR VOLUME 87.3 fl (80.0-96.0); MONO # 0.8 10^3/uL (0.0-0.8); MONO % 8.1 % (2.0-8.0); NEUTROPHILS # 5.2 10^3/uL (1.5-8.5); NEUTROPHILS % 56.1 % (36.0-66.0); PLATELET COUNT, AUTOMATED 291 10^3/uL (150-450); RED BLOOD COUNT 4.95 10^6/uL (4.30-6.10); WHITE BLOOD COUNT 9.3 10^3/uL (4.0-10.0)
[2023-05-16] MEDS ORDERED: NS 1,000 ML IV ONE (18:20)
[2023-05-16 18:36] LABS: LIPASE 26 U/L (12-53)
[2023-05-16 18:38] LABS: ALBUMIN 3.5 G/DL (3.2-5.2); ALKALINE PHOSPHATASE 69 U/L (46-116); ALT/SGPT 16 U/L (7.0-40); AST/SGOT < 8 U/L (<34); BILIRUBIN,DIRECT 0.1 MG/DL (<0.4); BILIRUBIN,TOTAL 0.3 MG/DL (0.3-1.2); BLOOD UREA NITROGEN 9 MG/DL (9-23); CALCIUM LEVEL 9.1 MG/DL (8.5-10.1); CARBON DIOXIDE LEVEL 28 MMOL/L (20-31); CHLORIDE LEVEL 106 MMOL/L (98-107); CREATININE FOR GFR 1.04 MG/DL (0.70-1.30); GLOMERULAR FILTRATION RATE > 60.0 (>60); GLUCOSE, FASTING 101 MG/DL (60-100); POTASSIUM SERUM 4.1 MMOL/L (3.5-5.1); SODIUM LEVEL 141 MMOL/L (136-145); TOTAL PROTEIN 6.7 G/DL (5.7-8.2)
[2023-05-16 18:46] VITALS: BP 119/81
[2023-05-16 19:05] LABS: MAGNESIUM LEVEL 2.2 MG/DL (1.8-2.4)
[2023-05-16 19:08] LABS: CPK CREATINE PHOSPHOKINASE 48 U/L (46-171)
[2023-05-16] MEDS ORDERED: PEPC1TAB5 PO (20:28)
== END 2023-05-16 20:42 | disposition home or self-care (01) ==
LOC: M ED 15:23
DX: R53.1 Weakness (principal); R53.81 Other malaise; R19.7 Diarrhea, unspecified; R00.1 Bradycardia, unspecified; K21.9 Gastro-esophageal reflux disease without esophagitis; A04.72 Enterocolitis due to Clostridium difficile, not specified as recurrent; J45.909 Unspecified asthma, uncomplicated; F41.9 Anxiety disorder, unspecified; Z79.52 Long term (current) use of systemic steroids; Z79.83 Long term (current) use of bisphosphonates; Z79.899 Other long term (current) drug therapy

== ENCOUNTER → 2023-05-16 | Outpatient (REF) | payer OTHER ==
[~2023-05-16] MED LIST changes: +DICY-61 PO; -DICY10CA13 PO; +PEPC1TAB5 PO
[2023-05-16 19:30] LABS: PERCENT SATURATION 39.7 % (19.7-50.0)
[2023-05-16 19:31] LABS: FERRITIN 153.7 NG/ML (10.5-307.3)
== END ==
LOC: M LAB REF 16:38
PROVIDERS: ATTEND Internal Medicine
DX: R63.4 Abnormal weight loss (principal); E86.0 Dehydration; R19.7 Diarrhea, unspecified

== ENCOUNTER → 2023-07-02 | Outpatient (CLI) | payer OTHER ==
[~2023-07-02] MED LIST changes: +GLUCAGON INJ 1MG VIAL As Ordered ONE; +NEULUMEX 0.1% SUSPENSION 450ML BOTTLE (FORMERLY VOLUMEN) As Ordered ONE; +PEPC1TAB5 PO
== END ==
LOC: M RAD 11:33
PROVIDERS: ATTEND Physician Assistant Medical
DX: R63.4 Abnormal weight loss (principal)

== ENCOUNTER → 2023-08-26 | Outpatient (CLI) | payer OTHER ==
[~2023-08-26] MED LIST changes: -GLUCAGON INJ 1MG VIAL As Ordered ONE; -NEULUMEX 0.1% SUSPENSION 450ML BOTTLE (FORMERLY VOLUMEN) As Ordered ONE
== END ==
LOC: M RAD 06:59
PROVIDERS: ATTEND Physician Assistant Medical
DX: K31.84 Gastroparesis (principal); R68.81 Early satiety; R63.4 Abnormal weight loss
CPT/HCPCS: 78264; A9541

== ENCOUNTER → 2023-11-08 | Outpatient (CLI) | payer OTHER ==
[~2023-11-08] MED LIST changes: +ISOVUE-370 76% 100ML VIAL As Ordered ONE
== END ==
LOC: M RAD 15:30
PROVIDERS: ATTEND Internal Medicine
DX: N20.0 Calculus of kidney (principal); R63.4 Abnormal weight loss; Z15.09 Genetic susceptibility to other malignant neoplasm
CPT/HCPCS: 71260; 74177; Q9967

== ENCOUNTER → 2023-12-25 | Outpatient (REF) | payer OTHER ==
[~2023-12-25] MED LIST changes: -ISOVUE-370 76% 100ML VIAL As Ordered ONE
== END ==
LOC: M SFHCPLAZ 10:22
PROVIDERS: ATTEND Internal Medicine Infectious Disease
DX: J02.9 Acute pharyngitis, unspecified (principal)

== ENCOUNTER 2024-01-01 08:51 | Emergency (ER) | payer OTHER ==
[~2024-01-01] VITALS: Ht 180.3 cm; Wt 100.7 kg
[~2024-01-01 08:51] MED LIST changes: -ALPR1TAB3; +ALPR1TAB3 PO; +CLON0.2T PO; +LURA40TA2 PO; +VILA40TA PO
[2024-01-01] MEDS ORDERED: OMEP-173 PO (09:24)
[2024-01-01 10:36] LABS: BASO % 0.3 % (0.0-1.0); EOS % 0.3 % (0.0-3.0); HEMATOCRIT 41.6 % (42.0-52.0); HEMOGLOBIN 14.8 g/dl (13.5-17.5); LYMPH % 11.2 % (24.0-44.0); MEAN CORPUSCULAR HEMOGLOBIN 30.5 pg (27.0-33.0); MEAN CORPUSCULAR HGB CONC 35.6 g/dl (32.0-36.5); MEAN CORPUSCULAR VOLUME 85.8 fl (80.0-96.0); MONO # 0.3 10^3/uL (0.0-0.8); MONO % 3.6 % (2.0-8.0); NEUTROPHILS # 7.3 10^3/uL (1.5-8.5); NEUTROPHILS % 84.3 % (36.0-66.0); PLATELET COUNT, AUTOMATED 184 10^3/uL (150-450); RED BLOOD COUNT 4.85 10^6/uL (4.30-6.10); WHITE BLOOD COUNT 8.7 10^3/uL (4.0-10.0)
[2024-01-01 10:57] LABS: LIPASE 32 U/L (12-53)
[2024-01-01 10:59] LABS: ALBUMIN 3.7 G/DL (3.2-5.2); ALKALINE PHOSPHATASE 99 U/L (46-116); ALT/SGPT 894 U/L (7.0-40); AMYLASE 38 U/L (30-118); AST/SGOT 564 U/L (<34); BILIRUBIN,DIRECT 0.6 MG/DL (<0.4); BILIRUBIN,TOTAL 1.4 MG/DL (0.3-1.2); BLOOD UREA NITROGEN 9 MG/DL (9-23); CALCIUM LEVEL 9.5 MG/DL (8.5-10.1); CARBON DIOXIDE LEVEL 24 MMOL/L (20-31); CHLORIDE LEVEL 103 MMOL/L (98-107); CREATININE FOR GFR 0.84 MG/DL (0.70-1.30); GLOMERULAR FILTRATION RATE > 60.0 (>60); GLUCOSE, FASTING 105 MG/DL (60-100); POTASSIUM SERUM 3.7 MMOL/L (3.5-5.1); SODIUM LEVEL 135 MMOL/L (136-145); TOTAL PROTEIN 7.2 G/DL (5.7-8.2)
[2024-01-01 11:18] VITALS: TEMP 98.4
[2024-01-01] MEDS: ONDANSETRON 4MG 2ML VIAL IV ONE (13:35)
[2024-01-01] MEDS: MORPHINE 2 MG/ML 1ML VIAL IV ONE (13:51)
[2024-01-01] MEDS: PIPERACILLIN/TAZOBACTAM SOD 3.375 GM in D5W MINI-BAG PLUS 50 ML IV ONE (13:52)
[2024-01-01] MEDS ORDERED: ISOVUE-370 76% 100ML VIAL As Ordered ONE (14:37)
[2024-01-01] MEDS: FIDAXOMICIN 200 MG TAB (DIFICID) PO ONE (15:28)
[2024-01-01] MEDS ORDERED: ONDA4TAB6 PO (15:56)
[2024-01-01] MEDS ORDERED: SUCR1SS PO (15:56)
[2024-01-01 16:11] VITALS: BP 130/72; O2SAT 99
== END 2024-01-01 16:13 | disposition home or self-care (01) ==
LOC: M ED 11:56
DX: K29.70 Gastritis, unspecified, without bleeding (principal); N20.0 Calculus of kidney; A04.72 Enterocolitis due to Clostridium difficile, not specified as recurrent; K44.9 Diaphragmatic hernia without obstruction or gangrene; K40.20 Bilateral inguinal hernia, without obstruction or gangrene, not specified as recurrent; Z79.52 Long term (current) use of systemic steroids; Z79.83 Long term (current) use of bisphosphonates; Z79.810 Long term (current) use of selective estrogen receptor modulators (SERMs); Z79.899 Other long term (current) drug therapy
CPT/HCPCS: 74177; 80048; 80076; 82150; 83605; 83690; 85025; 86140; 96365; 96366; 96375; 99284; J2405; J2543; Q9967

== ENCOUNTER 2024-01-15 07:34 | Day surgery (SDC) | payer OTHER ==
[~2024-01-15] VITALS: Ht 180.3 cm; Wt 100.2 kg
[~2024-01-15 07:34] MED LIST changes: +OMEP-173 PO; +ONDA4TAB6 PO; +SUCR1SS PO
[2024-01-15] MEDS: NS 1,000 ML IV ONE (07:48)
[2024-01-15] MEDS ORDERED: fentaNYL 100 MCG/2 ML INJECTION As Ordered ONE (07:55)
[2024-01-15] MEDS ORDERED: LIDOCAINE 2% 100MG/5ML SDV (FOR ANES.) As Ordered ONE (08:00)
[2024-01-15] MEDS ORDERED: propofoL 200 MG/20 ML VIAL As Ordered ONE (08:00)
[2024-01-15 08:53] VITALS: BP 116/62; O2SAT 96
[2024-01-15 11:50] LABS: CLOSTRIDIUM DIFFICILE PCR NEGATIVE (NEGATIVE)
== END 2024-01-15 09:01 | disposition home or self-care (01) ==
LOC: M OPP 07:34
PROVIDERS: ATTEND Internal Medicine Gastroenterology
DX: R63.4 Abnormal weight loss (principal); Z15.09 Genetic susceptibility to other malignant neoplasm; K31.7 Polyp of stomach and duodenum; K31.89 Other diseases of stomach and duodenum; R10.84 Generalized abdominal pain; G47.9 Sleep disorder, unspecified; Z79.51 Long term (current) use of inhaled steroids; Z79.83 Long term (current) use of bisphosphonates; Z79.810 Long term (current) use of selective estrogen receptor modulators (SERMs); Z79.899 Other long term (current) drug therapy
CPT/HCPCS: 43239; 43251; 45380; 87324; 88305; J3010

== ENCOUNTER → 2024-01-23 | Outpatient (CLI) | payer OTHER ==
[2024-01-23 14:03] LABS: BASO % 0.7 % (0.0-1.0); EOS # 0.1 10^3/uL (0.0-0.5); EOS % 1.7 % (0.0-3.0); HEMOGLOBIN 13.5 g/dl (13.5-17.5); LYMPH # 1.4 10^3/uL (1.5-5.0); MEAN CORPUSCULAR HEMOGLOBIN 31.8 pg (27.0-33.0); MEAN CORPUSCULAR HGB CONC 33.8 g/dl (32.0-36.5); MEAN CORPUSCULAR VOLUME 94.1 fl (80.0-96.0); MONO # 0.2 10^3/uL (0.0-0.8); MONO % 2.8 % (2.0-8.0); NEUTROPHILS # 3.7 10^3/uL (1.5-8.5); NEUTROPHILS % 68.2 % (36.0-66.0); PLATELET COUNT, AUTOMATED 203 10^3/uL (150-450); RED BLOOD COUNT 4.25 10^6/uL (4.30-6.10); WHITE BLOOD COUNT 5.4 10^3/uL (4.0-10.0)
[2024-01-23 14:13] LABS: ERYTHROCYTE SEDIMENTATION RATE 42 mm/hr (0-15)
[2024-01-23 14:28] LABS: IMMUNOGLOBULIN A 438.9 MG/DL (40-350)
[2024-01-23 14:31] LABS: IMMUNOGLOBULIN G 1089 MG/DL (650-1600); IRON (FE) 178 UG/DL (65-175)
[2024-01-23 14:32] LABS: ALBUMIN 3.4 G/DL (3.2-5.2); ALKALINE PHOSPHATASE 180 U/L (46-116); ALT/SGPT 389 U/L (7.0-40); AST/SGOT 222 U/L (<34); BILIRUBIN,TOTAL 0.9 MG/DL (0.3-1.2); BLOOD UREA NITROGEN 11 MG/DL (9-23); CALCIUM LEVEL 9.3 MG/DL (8.5-10.1); CARBON DIOXIDE LEVEL 29 MMOL/L (20-31); CHLORIDE LEVEL 103 MMOL/L (98-107); GLOMERULAR FILTRATION RATE > 60.0 (>60); GLUCOSE, FASTING 106 MG/DL (60-100); MAGNESIUM LEVEL 1.9 MG/DL (1.8-2.4); PERCENT SATURATION 64.5 % (19.7-50.0); POTASSIUM SERUM 4.3 MMOL/L (3.5-5.1); SODIUM LEVEL 139 MMOL/L (136-145); TOTAL IRON BINDING CAPACITY 276 UG/DL (250-425); TOTAL PROTEIN 6.9 G/DL (5.7-8.2)
[2024-01-23 14:34] LABS: FERRITIN 1492.2 NG/ML (10.5-307.3); TOTAL 25(OH) VITAMIN D 23.9 NG/ML (20.0-100.0)
[2024-01-23 14:37] LABS: FOLATE 20.1 NG/ML (>5.4); VITAMIN B12 LEVEL 984 PG/ML (211-911)
[2024-01-23 16:03] LABS: HEPATITIS C VIRUS ABY INDEX < 0.02 INDEX (<0.8)
[2024-01-23 16:12] LABS: HIV 1&2 SCREEN NEGATIVE (NEGATIVE)
[2024-01-23 16:49] LABS: HEPATITIS B SURFACE ANTIBODY NEGATIVE (POSITIVE)
== END ==
LOC: M PLALAB 11:08
PROVIDERS: ATTEND Internal Medicine Infectious Disease
DX: J03.00 Acute streptococcal tonsillitis, unspecified (principal); K75.9 Inflammatory liver disease, unspecified; R53.82 Chronic fatigue, unspecified; L03.039 Cellulitis of unspecified toe; E55.9 Vitamin D deficiency, unspecified; A04.71 Enterocolitis due to Clostridium difficile, recurrent

== ENCOUNTER → 2024-01-31 | Outpatient (CLI) | payer OTHER ==
[2024-01-31 17:35] LABS: ALBUMIN 3.3 G/DL (3.2-5.2); BILIRUBIN,DIRECT 0.5 MG/DL (<0.4); TOTAL PROTEIN 6.8 G/DL (5.7-8.2)
[2024-02-04 20:07] LABS: ANTI PARVO VIRUS LEVEL IGG 2.4 index (0.0-0.8); ANTI PARVO VIRUS LEVEL IgM 0.3 index (0.0-0.8); COXSACKIE TYPE A-16 IgG Negative titer (Neg:<1:100); COXSACKIE TYPE A-16 IgM Negative titer (Neg:<1:10); COXSACKIE TYPE A-24 IgG Negative titer (Neg:<1:100); COXSACKIE TYPE A-24 IgM Negative titer (Neg:<1:10); COXSACKIE TYPE A-7 IgG Negative titer (Neg:<1:100); COXSACKIE TYPE A-7 IgM Negative titer (Neg:<1:10); COXSACKIE TYPE A-9 IgG Negative titer (Neg:<1:100); COXSACKIE TYPE A-9 IgM Negative titer (Neg:<1:10); COXSACKIE TYPE B2 Negative (Neg:<1:100); COXSACKIE TYPE B6 Negative (Neg:<1:100); HEPATITIS C QUANTITATION HCV Not Detected IU/mL (.)
== END ==
LOC: M PLALAB 16:36
PROVIDERS: ATTEND Internal Medicine Infectious Disease
DX: K75.9 Inflammatory liver disease, unspecified (principal)

== ENCOUNTER → 2024-04-08 | Outpatient (CLI) | payer OTHER ==
[~2024-04-08] MED LIST changes: -ALBU90AE IH; +ALBU90AE2 IH; +FLUO-365 PO; -FLUO20CA22 PO; +ONDA-282 PO; -ONDA4TAB6 PO
[2024-04-08 13:09] LABS: INR 1.1; PROTHROMBIN TIME 13.8 SECONDS (12.5-14.5)
[2024-04-08 13:33] LABS: ALBUMIN 3.3 G/DL (3.2-5.2); BILIRUBIN,DIRECT 0.2 MG/DL (<0.4); BILIRUBIN,TOTAL 0.4 MG/DL (0.3-1.2); TOTAL PROTEIN 6.4 G/DL (5.7-8.2)
== END ==
LOC: M PLALAB 09:27
PROVIDERS: ATTEND Internal Medicine Gastroenterology
DX: R74.8 Abnormal levels of other serum enzymes (principal)

== ENCOUNTER → 2024-04-08 | Outpatient (CLI) | payer OTHER ==
[2024-04-08 12:51] LABS: BASO # 0.1 10^3/uL (0.0-0.2); BASO % 0.8 % (0.0-1.0); EOS # 0.1 10^3/uL (0.0-0.5); EOS % 1.4 % (0.0-3.0); HEMATOCRIT 46.2 % (42.0-52.0); HEMOGLOBIN 15.2 g/dl (13.5-17.5); LYMPH # 4.6 10^3/uL (1.5-5.0); LYMPH % 58.9 % (24.0-44.0); MEAN CORPUSCULAR HEMOGLOBIN 31.8 pg (27.0-33.0); MEAN CORPUSCULAR HGB CONC 32.9 g/dl (32.0-36.5); MEAN CORPUSCULAR VOLUME 96.7 fl (80.0-96.0); MONO # 0.6 10^3/uL (0.0-0.8); MONO % 7.2 % (2.0-8.0); NEUTROPHILS # 2.5 10^3/uL (1.5-8.5); NEUTROPHILS % 31.4 % (36.0-66.0); PLATELET COUNT, AUTOMATED 248 10^3/uL (150-450); RED BLOOD COUNT 4.78 10^6/uL (4.30-6.10); WHITE BLOOD COUNT 7.8 10^3/uL (4.0-10.0)
[2024-04-08 13:33] LABS: FERRITIN 217.5 NG/ML (10.5-307.3)
[2024-04-08 13:34] LABS: ALBUMIN 3.3 G/DL (3.2-5.2); ALKALINE PHOSPHATASE 80 U/L (46-116); ALT/SGPT 38 U/L (7.0-40); AST/SGOT 67 U/L (<34); BILIRUBIN,TOTAL 0.4 MG/DL (0.3-1.2); BLOOD UREA NITROGEN 8 MG/DL (9-23); CARBON DIOXIDE LEVEL 30 MMOL/L (20-31); CHLORIDE LEVEL 109 MMOL/L (98-107); CREATININE FOR GFR 1.08 MG/DL (0.70-1.30); GLOMERULAR FILTRATION RATE > 60.0 (>60); GLUCOSE, FASTING 75 MG/DL (60-100); POTASSIUM SERUM 4.3 MMOL/L (3.5-5.1); SODIUM LEVEL 143 MMOL/L (136-145); TOTAL PROTEIN 6.5 G/DL (5.7-8.2)
== END ==
LOC: M PLALAB 09:32
PROVIDERS: ATTEND Internal Medicine Infectious Disease
DX: K75.9 Inflammatory liver disease, unspecified (principal); R79.89 Other specified abnormal findings of blood chemistry

== ENCOUNTER → 2024-04-29 | Outpatient (CLI) | payer OTHER | LOC: M PLAIMG 07:30 | PROVIDERS: ATTEND Internal Medicine Gastroenterology | DX: R74.8 Abnormal levels of other serum enzymes (principal); K80.36 Calculus of bile duct with acute and chronic cholangitis without obstruction; K76.89 Other specified diseases of liver ==

== ENCOUNTER → 2024-07-29 | Outpatient (REF) | payer OTHER | LOC: M LAB REF 16:36 | PROVIDERS: ATTEND Internal Medicine | DX: M62.81 Muscle weakness (generalized) (principal); D50.9 Iron deficiency anemia, unspecified ==

== ENCOUNTER → 2024-08-04 | Outpatient (CLI) | payer OTHER ==
[2024-08-04 16:22] LABS: BLOOD UREA NITROGEN 11 MG/DL (9-23); CPK CREATINE PHOSPHOKINASE 62 U/L (46-171); CREATININE FOR GFR 0.99 MG/DL (0.70-1.30); GLOMERULAR FILTRATION RATE > 60.0 (>60)
[2024-08-04 16:24] LABS: FOLATE > 24.0 NG/ML (>5.4)
[2024-08-04 16:25] LABS: THYROID STIMULATING HORMONE 1.047 uIU/ML (0.55-4.78); THYROXINE (T4) 5.2 UG/DL (4.5-10.9); TOTAL 25(OH) VITAMIN D 26.5 NG/ML (20.0-100.0); VITAMIN B12 LEVEL 536 PG/ML (211-911)
[2024-08-04 16:27] LABS: FREE THYROXINE INDEX 2.2 % (1.4-3.8); T UPTAKE 41.7 % (22.5-37.0)
[2024-08-05 10:07] LABS: T P ELECTROPHORESIS SO 6.8 g/dL (6.1-8.1)
[2024-08-06 14:43] LABS: ALPHA-1-GLOBULINS SO 0.2 g/dL (0.2-0.3); ALPHA-2-GLOBULINS SO 0.7 g/dL (0.5-0.9); BETA 2 GLOBULIN 0.5 g/dL (0.2-0.5); BETA-GLOBULIN SO 0.4 g/dL (0.4-0.6)
== END ==
LOC: M PLALAB 11:34
PROVIDERS: ATTEND Psychiatry & Neurology Neurology
DX: R53.1 Weakness (principal)

== ENCOUNTER → 2024-09-09 | Outpatient (CLI) | payer OTHER ==
[~2024-09-09] MED LIST changes: -ADV250INH INH; +ADVA1AER9 INH
== END ==
LOC: M PLAIMG 07:05
PROVIDERS: ATTEND Internal Medicine
DX: R51.9 Headache, unspecified (principal); R53.83 Other fatigue

== ENCOUNTER 2024-09-16 07:00 | Outpatient (RCR) | payer OTHER | END 2024-09-29 | LOC: M PT 07:00 | PROVIDERS: ATTEND Internal Medicine | DX: M62.81 Muscle weakness (generalized) (principal) ==

== ENCOUNTER → 2024-09-29 | Outpatient (CLI) | payer OTHER ==
[2024-09-29 17:33] LABS: BASO # 0.1 10^3/uL (0.0-0.2); BASO % 0.6 % (0.0-1.0); EOS % 0.1 % (0.0-3.0); HEMATOCRIT 46.6 % (42.0-52.0); HEMOGLOBIN 16.1 g/dl (13.5-17.5); LYMPH # 3.1 10^3/uL (1.5-5.0); LYMPH % 24.9 % (24.0-44.0); MEAN CORPUSCULAR HEMOGLOBIN 30.4 pg (27.0-33.0); MEAN CORPUSCULAR HGB CONC 34.5 g/dl (32.0-36.5); MEAN CORPUSCULAR VOLUME 88.1 fl (80.0-96.0); MONO # 1.3 10^3/uL (0.0-0.8); MONO % 10.2 % (2.0-8.0); NEUTROPHILS # 7.9 10^3/uL (1.5-8.5); PLATELET COUNT, AUTOMATED 298 10^3/uL (150-450); RED BLOOD COUNT 5.29 10^6/uL (4.30-6.10); WHITE BLOOD COUNT 12.3 10^3/uL (4.0-10.0)
[2024-09-29 17:38] LABS: ERYTHROCYTE SEDIMENTATION RATE 21 mm/hr (0-15)
[2024-09-29 17:54] LABS: ALBUMIN 4.1 G/DL (3.2-5.2); ALKALINE PHOSPHATASE 76 U/L (40-129); ALT/SGPT 23 U/L (7.0-40); AST/SGOT 21 U/L (<34); BILIRUBIN,TOTAL 0.6 MG/DL (0.3-1.2); BLOOD UREA NITROGEN 10 MG/DL (9-23); C REACTIVE PROTEIN QUANTITATIV 1.97 MG/DL (<1.0); CALCIUM LEVEL 9.8 MG/DL (8.5-10.1); CARBON DIOXIDE LEVEL 25 MMOL/L (20-31); CHLORIDE LEVEL 107 MMOL/L (98-107); CREATININE FOR GFR 1.05 MG/DL (0.70-1.30); GLOMERULAR FILTRATION RATE > 60.0 (>60); GLUCOSE, FASTING 102 MG/DL (60-100); POTASSIUM SERUM 3.8 MMOL/L (3.5-5.1); SODIUM LEVEL 142 MMOL/L (136-145); TOTAL PROTEIN 7.7 G/DL (5.7-8.2)
[2024-09-29 17:57] LABS: FERRITIN 209.1 NG/ML (10.5-307.3)
[2024-10-02 14:48] LABS: ANA PATTERN Nuclear, Homogeneous (NEGATIVE); ANA SCREEN, IFA POSITIVE (NEGATIVE); ANA TITER 1:40 titer (<1:40)
== END ==
LOC: M PLALAB 15:47
PROVIDERS: ATTEND Family Medicine
DX: R76.8 Other specified abnormal immunological findings in serum (principal); R63.4 Abnormal weight loss; R53.1 Weakness; R61 Generalized hyperhidrosis

== ENCOUNTER 2024-10-22 07:42 | Outpatient (RCR) | payer OTHER | END 2024-10-30 | LOC: M PT 07:42 | PROVIDERS: ATTEND Internal Medicine | DX: M62.81 Muscle weakness (generalized) (principal) ==

== ENCOUNTER → 2024-11-10 | Outpatient (CLI) | payer OTHER ==
[2024-11-10 14:04] LABS: BASO % 0.5 % (0.0-1.0); EOS # 0.1 10^3/uL (0.0-0.5); EOS % 1.3 % (0.0-3.0); HEMATOCRIT 46.7 % (42.0-52.0); HEMOGLOBIN 15.6 g/dl (13.5-17.5); LYMPH # 4.1 10^3/uL (1.5-5.0); LYMPH % 48.1 % (24.0-44.0); MEAN CORPUSCULAR HEMOGLOBIN 30.5 pg (27.0-33.0); MEAN CORPUSCULAR HGB CONC 33.4 g/dl (32.0-36.5); MEAN CORPUSCULAR VOLUME 91.2 fl (80.0-96.0); MONO # 0.6 10^3/uL (0.0-0.8); MONO % 6.6 % (2.0-8.0); NEUTROPHILS # 3.7 10^3/uL (1.5-8.5); NEUTROPHILS % 43.4 % (36.0-66.0); PLATELET COUNT, AUTOMATED 295 10^3/uL (150-450); RED BLOOD COUNT 5.12 10^6/uL (4.30-6.10); WHITE BLOOD COUNT 8.4 10^3/uL (4.0-10.0)
[2024-11-10 14:45] LABS: C REACTIVE PROTEIN QUANTITATIV < 0.50 MG/DL (<1.0)
[2024-11-10 14:46] LABS: ALBUMIN 3.7 G/DL (3.2-5.2); ALKALINE PHOSPHATASE 72 U/L (40-129); ALT/SGPT 14 U/L (7.0-40); AST/SGOT 12 U/L (<34); BILIRUBIN,TOTAL 0.6 MG/DL (0.3-1.2); BLOOD UREA NITROGEN 8 MG/DL (9-23); CALCIUM LEVEL 9.6 MG/DL (8.5-10.1); CARBON DIOXIDE LEVEL 28 MMOL/L (20-31); CHLORIDE LEVEL 106 MMOL/L (98-107); CHOLESTEROL LEVEL 221 MG/DL (<200); CHOLESTEROL RISK RATIO 3.97 (<5); CREATININE FOR GFR 1.09 MG/DL (0.70-1.30); GLOMERULAR FILTRATION RATE > 60.0 (>60); GLUCOSE, FASTING 101 MG/DL (60-100); HDL CHOLESTEROL 55.6 MG/DL (>40); NON-HDL-C 165.4 MG/DL; POTASSIUM SERUM 4.6 MMOL/L (3.5-5.1); SODIUM LEVEL 143 MMOL/L (136-145); TOTAL PROTEIN 7.4 G/DL (5.7-8.2); TRIGLYCERIDES LEVEL 102 MG/DL (<150)
[2024-11-10 14:51] LABS: THYROID STIMULATING HORMONE 2.299 uIU/ML (0.55-4.78)
[2024-11-12 16:32] LABS: QuantiFERON-TB Gold Plus NEGATIVE (NEGATIVE)
== END ==
LOC: M PLALAB 11-04 16:13
PROVIDERS: ATTEND Family Medicine
DX: R61 Generalized hyperhidrosis (principal); E66.9 Obesity, unspecified

== ENCOUNTER → 2024-11-24 | Outpatient (REF) | payer OTHER ==
[~2024-11-24] MED LIST changes: +VANC125C13 PO; -VANC125C3 PO
[2024-11-24 13:54] LABS: APPEARANCE, URINE CLOUDY (CLEAR); BACTERIA, URINE AUTO NEGATIVE (NEGATIVE); BILIRUBIN, URINE AUTO NEGATIVE (NEGATIVE); BLOOD, URINE BLOOD NEGATIVE (NEGATIVE); CALCIUM OXALATE CRYSTALS SMALL; COLOR, URINE AMBER (YELLOW); GLUCOSE, URINE (UA) AUTO NEGATIVE (NEGATIVE); KETONE, URINE AUTO NEGATIVE (NEGATIVE); LEUKOCYTE ESTERASE, URINE AUTO NEGATIVE (NEGATIVE); MUCUS, URINE LARGE (NEGATIVE); NITRITE, URINE AUTO NEGATIVE (NEGATIVE); PROTEIN, URINE AUTO 1+ mg/dL (NEGATIVE); RBC, URINE AUTO 3 /HPF (0-3); SPECIFIC GRAVITY URINE AUTO 1.031 (1.002-1.035); SQUAMOUS EPITHELIAL CELL UR AU 1 /HPF (0-6); WBC, URINE AUTO 2 /HPF (0-3)
== END ==
LOC: M SFHCPLAZ 13:35
PROVIDERS: ATTEND Family Medicine
DX: R61 Generalized hyperhidrosis (principal); E66.9 Obesity, unspecified

== ENCOUNTER → 2025-08-04 | Outpatient (REF) | payer OTHER ==
[~2025-08-04] MED LIST changes: +ALBU8.5H; +DIAZ10TA2 PO; +DIVA-41 PO; -DIVA500T94 PO; +MULT400T10 PO
== END ==
LOC: M SFHCPLAZ 15:00
DX: R53.82 Chronic fatigue, unspecified (principal)

== ENCOUNTER → 2025-08-05 | Outpatient (CLI) | payer OTHER ==
[2025-08-05 17:38] LABS: PLATELET COUNT, AUTOMATED 361 10^3/uL (150-450)
[2025-08-05 17:52] LABS: ESTIMATED AVERAGE GLUCOSE 114.0 MG/DL (60-110)
[2025-08-05 18:02] LABS: TOTAL 25(OH) VITAMIN D 29.4 NG/ML (20.0-100.0)
[2025-08-05 18:03] LABS: ALT/SGPT 15 U/L (7.0-40); AST/SGOT 18 U/L (<34); C REACTIVE PROTEIN QUANTITATIV < 0.50 MG/DL (<1.0); CALCIUM LEVEL 9.4 MG/DL (8.5-10.1); CARBON DIOXIDE LEVEL 29 MMOL/L (20-31); CHLORIDE LEVEL 103 MMOL/L (98-107); CREATININE FOR GFR 1.06 MG/DL (0.70-1.30); GLOMERULAR FILTRATION RATE > 90.0 (>60); POTASSIUM SERUM 4.4 MMOL/L (3.5-5.1); SODIUM LEVEL 140 MMOL/L (136-145)
[2025-08-05 18:04] LABS: FREE T4 1.01 NG/DL (0.89-1.76); VITAMIN B12 LEVEL 497 PG/ML (211-911)
== END ==
LOC: M PLALAB 15:56
DX: R53.82 Chronic fatigue, unspecified (principal)

== ENCOUNTER → 2025-08-07 | Outpatient (CLI) | payer OTHER | LOC: M LAB 10:25 | DX: R53.82 Chronic fatigue, unspecified (principal) ==

== ENCOUNTER → 2025-09-13 | Outpatient (CLI) | payer OTHER | LOC: M SLEEP HO 15:12 | PROVIDERS: ATTEND Family Medicine | DX: R06.83 Snoring (principal); G47.19 Other hypersomnia ==